=== PATIENT | male | born 1950 | race Caucasian/White ===

== ENCOUNTER → 2017-06-08 | Outpatient (CLI) | payer BC ==
--- NOTE | 2017-06-08 14:33 | RADRPT ---
EXAM DATE/TIME: 06/08/2017 00:00 [place] COMPARISON: No previous studies available for comparison. INDICATIONS : Intermittent claudication TECHNIQUE: Five-station segmental examination of the lower extremities was performed pre and post extercise. Pulsed-cuff waveform tracings and pressures were recorded. Ankle-brachial indices and toe-brachial indices were calculated. PRESSURES (mmHg): Pre Exercise: Brachial (arm): Right 163 Left 163 Ankle: Right 207 Left 195 CHRISTIAN: Right 1.27 Left 1.20 TBI: Right 0.97 Left 0.79 Post Exercise: Brachial (arm): Right 179 Not applicable Ankle: Right 179 Left 188 PULSED CUFF WAVEFORMS: Demonstrate normal amplitude bilaterally. CONCLUSION: Unremarkable segmental evaluation of the lower extremities. Kenny Yarbrough Jr., MD on June 08, 2017 at 14:26 Board Certified Radiologist. This report was verified electronically.
== END ==
LOC: HCAV 12:29
PROVIDERS: ATTEND Internal Medicine Gastroenterology
DX: I70.219 Atherosclerosis of native arteries of extremities with intermittent claudication, unspecified extremity (principal)
CPT/HCPCS: 93924